=== PATIENT | male | born 1995 | race Caucasian/White ===

== ENCOUNTER 2018-03-14 17:44 | Emergency (ER) | payer MEDICAID, OTHER ==
[~2018-03-14] VITALS: Ht 175.3 cm; Wt 61.0 kg
[2018-03-14 17:52] VITALS: BP 114/69
[2018-03-14] MEDS ORDERED: THC OIL PO (18:23)
[2018-03-14] MEDS ORDERED: CBD PO (18:23)
[2018-03-14] MEDS ORDERED: HYDROcodone/APAP 5/325 TABLET ONE (18:29)
[2018-03-14] MEDS ORDERED: HYDROcodone/APAP 5/325 TABLET PO ONE (18:30)
[2018-03-14 18:49] LABS: CULTURE INDICATED? NO; MICROSCOPIC INDICATED
== END 2018-03-14 19:57 | disposition home or self-care (01) ==
LOC: ED 19:18
DX: N50.811 Right testicular pain (principal); N50.812 Left testicular pain; F84.0 Autistic disorder
CPT/HCPCS: 76870; 81001; 99285

== ENCOUNTER 2018-07-07 16:35 | Emergency (ER) | payer BC, MEDICAID ==
[~2018-07-07] VITALS: Ht 167.6 cm; Wt 58.5 kg
[~2018-07-07 16:35] MED LIST: CBD PO; THC OIL PO
[2018-07-07 18:07] LABS: MICROSCOPIC INDICATED
[2018-07-07 18:08] LABS: CULTURE INDICATED? NO
[2018-07-07 18:42] VITALS: BP 115/71
== END 2018-07-07 18:59 | disposition home or self-care (01) ==
LOC: ED 18:10
DX: N50.812 Left testicular pain (principal); N50.811 Right testicular pain; F84.0 Autistic disorder
CPT/HCPCS: 76870; 81001; 93975; 99284